=== PATIENT | female | born 1970 | race Caucasian/White ===

== ENCOUNTER 2024-08-18 08:09 | Outpatient (CLI) | payer BC | END 2024-08-18 08:10 | disposition home or self-care (01) | LOC: CSHMAMMO 08:09 | PROVIDERS: ATTEND Specialist | DX: Z12.31 Encounter for screening mammogram for malignant neoplasm of breast (principal); M81.0 Age-related osteoporosis without current pathological fracture; M85.89 Other specified disorders of bone density and structure, multiple sites | CPT/HCPCS: 77063; 77067; 77080 ==